=== PATIENT | male | born 1995 | race Caucasian/White ===

== ENCOUNTER 2017-08-20 16:07 | Emergency (ER) | payer BC, MEDICAID ==
[2017-08-20] MEDS ORDERED: Sodium Chloride 0.9% 10 ML Syringe FLUSH PRN (16:28)
[2017-08-20] MEDS ORDERED: Sodium Chloride 0.9% 1,000 ML IV ONE (16:28)
--- NOTE | 2017-08-20 16:44 | EDM.PDOC ---
ED HPI GENERAL MEDICAL PROBLEM - General Chief Complaint: General Stated Complaint: [facility] Time Seen by Provider: 08/20/17 16:31 Source of Information: Reports: Patient History Limitations: Reports: No Limitations - History of Present Illness INITIAL COMMENTS - FREE TEXT/NARRATIVE: 22-year-old male arrives via [facility] for evaluation and treatment of temporary paralysis. Patient reports he was driving. He states that he developed a headache. States it involved his entire head. He then had numbness, tingling and paralysis of his extremities. He states this entire episode lasted about 5 minutes. He is able to stick puller the car and used his voice recognition to call 911 for help. Since arriving in the ER he no longer has a headache. Reports good sensation in his extremities. No current paralysis. States he has been ill with cold symptoms and a sore throat for the last week. He reports he has been feeling nauseous and can't keep anything down. States last week he has had sore throat, fevers, nausea, vomiting and diarrhea. Reports he drinks alcohol socially. Denies any drug use. - Related Data Allergies Allergy/AdvReac Type Severity Reaction Status Date / Time No Known Allergies Allergy Verified 08/20/17 16:16 Home Meds: Home Meds Magnesium Chloride [Slow-Mag] 71.5 mg PO DAILY #5 tablet.dr 08/20/17 [Rx] Potassium Chloride 20 meq PO DAILY #5 tablet.er 08/20/17 [Rx] Past Medical History - Past Health History Medical/Surgical History: Denies Medical/Surgical History Social & Family History - Tobacco Use Years of Tobacco use: 3 - Alcohol Use Days Per Week of Alcohol Use: 0 - Recreational Drug Use Recreational Drug Use: No ED ROS GENERAL - Review of Systems Review Of Systems: See Below Constitutional: Reports: Fever HEENT: Reports: Throat Pain GI/Abdominal: Reports: Diarrhea, Nausea, Vomiting Neurological: Reports: Headache (ealier now resolved), Numbness (ealier now resolved), Tingling (earlier now resolved), Other (temporary pralysis extremities). Denies: Syncope ED EXAM, GENERAL - Physical Exam Exam: See Below Exam Limited By: No Limitations General Appearance: Alert, WD/WN, No Apparent Distress Eye Exam: Bilateral Eye: EOMI, Normal Inspection, PERRL Ears: Normal External Exam, Normal Canal, Hearing Grossly Normal, Normal TMs Nose: Normal Inspection Throat/Mouth: Normal Inspection, Normal Oropharynx, Normal Voice, No Airway Compromise Respiratory/Chest: No Respiratory Distress, Lungs Clear, Normal Breath Sounds Cardiovascular: Normal Peripheral Pulses, Regular Rate, Rhythm, No Murmur GI/Abdominal: Soft, Non-Tender Neurological: Alert, Oriented, CN II-XII Intact, Normal Cognition, Normal Gait, Other (job developer 5/5 bilaterally, doriflexion and plantarflexion 5/5 bilaterally, normal fniger to nose testing, normal heel to wu testing) Psychiatric: Normal Affect, Normal Mood Skin Exam: Warm, Dry, Normal Color Course - Vital Signs Last Recorded V/S: Last Vital Signs Temp 35.9 C 08/20/17 16:13 Pulse 109 H 08/20/17 16:13 Resp 16 08/20/17 16:13 BP 126/67 08/20/17 16:13 Pulse Ox 100 08/20/17 16:13 - Orders/Labs/Meds Orders: Active Orders 24 hr Category Date Time Status Peripheral IV Care [RC] . DIRECTED Care 08/20/17 16:30 Active Chest 2V [CR] Stat Exams 08/20/17 16:28 Taken Head wo Cont [CT] Stat Exams 08/20/17 16:28 Taken CULTURE STREP A CONFIRMATION [RM] Stat Lab 08/20/17 17:03 Results STREP SCRN A RAPID W CULT CONF [RM] Stat Lab 08/20/17 17:03 Results Peripheral IV Insertion Adult [OM.PC] Routine Oth 08/20/17 16:28 Ordered Labs: Laboratory Tests 08/20/17 08/20/17 08/20/17 Range/Units 16:43 16:43 16:43 WBC 9.09 H (4.23-9.07) K/mm3 RBC 5.29 (4.63-6.08) M/mm3 Hgb 17.2 (13.7-17.5) gm/L Hct 47.7 (40.1-51.0) % MCV 90.2 (79.0-92.2) fl MCH 32.5 H (25.7-32.2) pg MCHC 36.1 H (32.2-35.5) g/dl RDW Std Deviation 43.1 (35.1-43.9) fL Plt Count 211 (163-337) K/mm3 MPV 9.6 (9.4-12.3) fl Neut % (Auto) 72.3 H (34.0-67.9) % Lymph % (Auto) 20.7 L (21.8-53.1) % [place] % (Auto) 6.4 (5.3-12.2) % Eos % (Auto) 0.2 L (0.8-7.0) Baso % (Auto) 0.2 (0.1-1.2) % Neut # (Auto) 6.57 H (1.78-5.38) K/mm3 Lymph # (Auto) 1.88 (1.32-3.57) K/mm3 [place] # (Auto) 0.58 (0.30-0.82) K/mm3 Eos # (Auto) 0.02 L (0.04-0.54) K/mm3 Baso # (Auto) 0.02 (0.01-0.08) K/mm3 Sodium 140 (136-145) mEq/L Potassium 3.3 L (3.5-5.1) mEq/L Chloride 103 (98-107) mEq/L Carbon Dioxide 23 (21-32) mEq/L Anion Gap 17.3 H (5-15) BUN 8 (7-18) mg/dL Creatinine 1.1 (0.7-1.3) mg/dL Est Cr Clr Drug Dosing 106.92 mL/min Estimated GFR (MDRD) > 60 (>60) mL/min BUN/Creatinine Ratio 7.3 L (14-18) Glucose 106 (74-106) mg/dL Calcium 9.6 (8.5-10.1) mg/dL Magnesium 1.5 L (1.8-2.4) mg/dl Total Bilirubin 0.9 (0.2-1.0) mg/dL AST 75 H (15-37) U/L ALT 113 H (16-63) U/L Alkaline Phosphatase 155 H (46-116) U/L Total Protein 7.3 (6.4-8.2) g/dl Albumin 4.0 (3.4-5.0) g/dl Globulin 3.3 gm/dL Albumin/Globulin Ratio 1.2 (1-2) TSH 3rd Generation 2.341 (0.358-3.74) uIU/mL Urine Color (Yellow) Urine Appearance (Clear) Urine pH (5.0-8.0) Ur Specific [place] (1.005-1.030) Urine Protein (Negative) Urine Glucose (UA) (Negative) Urine Ketones (Negative) Urine Occult Blood (Negative) Urine Nitrite (Negative) Urine Bilirubin (Negative) Urine Urobilinogen (0.2-1.0) Ur Leukocyte Esterase (Negative) Urine RBC (0-5) /hpf Urine WBC (0-5) /hpf Ur Epithelial Cells (0-5) /hpf Urine Bacteria (FEW) /hpf Urine Mucus (FEW) /hpf Urine Opiates Screen (NEGATIVE) Ur Buprenorphine Scrn (NEGATIVE) Ur Oxycodone Screen (NEGATIVE) Urine Methadone Screen (NEGATIVE) Ur Propoxyphene Screen (NEGATIVE) Ur Barbiturates Screen (NEGATIVE) Ur Tricyclics Screen (NEGATIVE) Ur Phencyclidine Scrn (NEGATIVE) Ur Amphetamine Screen (NEGATIVE) U Methamphetamines Scrn (NEGATIVE) U Benzodiazepines Scrn (NEGATIVE) U Cocaine Metab Screen (NEGATIVE) U Marijuana (THC) Screen (NEGATIVE) Ethyl Alcohol 0.00 (0.00) gm% 08/20/17 08/20/17 Range/Units 18:50 18:50 WBC (4.23-9.07) K/mm3 RBC (4.63-6.08) M/mm3 Hgb (13.7-17.5) gm/L Hct (40.1-51.0) % MCV (79.0-92.2) fl MCH (25.7-32.2) pg MCHC (32.2-35.5) g/dl RDW Std Deviation (35.1-43.9) fL Plt Count (163-337) K/mm3 MPV (9.4-12.3) fl Neut % (Auto) (34.0-67.9) % Lymph % (Auto) (21.8-53.1) % [place] % (Auto) (5.3-12.2) % Eos % (Auto) (0.8-7.0) Baso % (Auto) (0.1-1.2) % Neut # (Auto) (1.78-5.38) K/mm3 Lymph # (Auto) (1.32-3.57) K/mm3 [place] # (Auto) (0.30-0.82) K/mm3 Eos # (Auto) (0.04-0.54) K/mm3 Baso # (Auto) (0.01-0.08) K/mm3 Sodium (136-145) mEq/L Potassium (3.5-5.1) mEq/L Chloride (98-107) mEq/L Carbon Dioxide (21-32) mEq/L Anion Gap (5-15) BUN (7-18) mg/dL Creatinine (0.7-1.3) mg/dL Est Cr Clr Drug Dosing mL/min Estimated GFR (MDRD) (>60) mL/min BUN/Creatinine Ratio (14-18) Glucose (74-106) mg/dL Calcium (8.5-10.1) mg/dL Magnesium (1.8-2.4) mg/dl Total Bilirubin (0.2-1.0) mg/dL AST (15-37) U/L ALT (16-63) U/L Alkaline Phosphatase (46-116) U/L Total Protein (6.4-8.2) g/dl Albumin (3.4-5.0) g/dl Globulin gm/dL Albumin/Globulin Ratio (1-2) TSH 3rd Generation (0.358-3.74) uIU/mL Urine Color Yellow (Yellow) Urine Appearance Clear (Clear) Urine pH 8.0 (5.0-8.0) Ur Specific [place] 1.020 (1.005-1.030) Urine Protein Negative (Negative) Urine Glucose (UA) Negative (Negative) Urine Ketones 1+ H (Negative) Urine Occult Blood Negative (Negative) Urine Nitrite Negative (Negative) Urine Bilirubin Negative (Negative) Urine Urobilinogen 1.0 (0.2-1.0) Ur Leukocyte Esterase Negative (Negative) Urine RBC 0-5 (0-5) /hpf Urine WBC 0-5 (0-5) /hpf Ur Epithelial Cells 0-5 (0-5) /hpf Urine Bacteria Few (FEW) /hpf Urine Mucus Moderate H (FEW) /hpf Urine Opiates Screen Negative (NEGATIVE) Ur Buprenorphine Scrn Negative (NEGATIVE) Ur Oxycodone Screen Negative (NEGATIVE) Urine Methadone Screen Negative (NEGATIVE) Ur Propoxyphene Screen Negative (NEGATIVE) Ur Barbiturates Screen Negative (NEGATIVE) Ur Tricyclics Screen Negative (NEGATIVE) Ur Phencyclidine Scrn Negative (NEGATIVE) Ur Amphetamine Screen Negative (NEGATIVE) U Methamphetamines Scrn Negative (NEGATIVE) U Benzodiazepines Scrn Negative (NEGATIVE) U Cocaine Metab Screen Negative (NEGATIVE) U Marijuana (THC) Screen Negative (NEGATIVE) Ethyl Alcohol (0.00) gm% Meds: Medications Discontinued Medications Generic Name Dose Route Start Last Admin Trade Name Freq PRN Reason Stop Dose Admin Sodium Chloride 1,000 mls @ 999 mls/hr 08/20/17 16:28 08/20/17 16:44 Normal Saline IV 08/20/17 17:28 999 mls/hr ONETIME ONE Administration Potassium Chloride 20 meq 08/20/17 17:43 08/20/17 17:59 Klor-Con M20 PO 08/20/17 17:44 20 meq ONETIME ONE Administration Sodium Chloride 10 ml 08/20/17 16:28 08/20/17 16:45 Saline Flush FLUSH 10 ml ASDIRECTED PRN Administration Keep Vein Open - Radiology Interpretation Free Text/Narrative:: CT of the head without contrast impression per [facility]rad: No acute intracranial process. chest xray shows no acute intrathorcic process - Re-Assessments/Exams Free Text/Narrative Re-Assessment/Exam: 08/20/17 20:00 Influenza returned negative. Strep returned negative. I reviewed the lab results with the patient. Etiology for symptoms include possible atypical migraine or dehydration with hypokalemia and hypomagnesemia. I will put him on some magnesium and potassium for the next 2 days and have him follow-up with family medicine. He has been symptom free since coming to the ER and is anxious to go home at this time. Feels improved after receiving some fluids. Will discharge home at this time. Departure - Departure Time of Disposition: 20:07 Disposition: Home, Self-Care 01 Condition: Fair Clinical Impression: Hypokalemia, Hypomagnesemia - Discharge Information Prescriptions: Magnesium Chloride [Slow-Mag] 71.5 mg PO DAILY #5 tablet. Potassium Chloride 20 meq PO DAILY #5 tablet.er Instructions: Hypomagnesemia, Hypokalemia Referrals: Gabriela Dowd OWNER [Ordering Only Provider] - Forms: ED Department Discharge Additional Instructions: Follow-up with your primary care provider next week. Recommend Iva Dowd at [facility]. Please call [phone] schedule her. Take the magnesium 1 tab daily. take the potassium 1 tab daily. Make sure drinking plenty of fluids. Please return to the ER if your symptoms change or worsen. - My Orders Last 24 Hours: My Active Orders 08/20/17 16:28 Chest 2V [CR] Stat Head wo Cont [CT] Stat Peripheral IV Insertion Adult [OM.PC] Routine 08/20/17 16:30 Peripheral IV Care [RC] . DIRECTED 08/20/17 17:03 CULTURE STREP A CONFIRMATION [RM] Stat STREP SCRN A RAPID W CULT CONF [RM] Stat - Assessment/Plan Last 24 Hours: My Active Orders 08/20/17 16:28 Chest 2V [CR] Stat Head wo Cont [CT] Stat Peripheral IV Insertion Adult [OM.PC] Routine 08/20/17 16:30 Peripheral IV Care [RC] . DIRECTED 08/20/17 17:03 CULTURE STREP A CONFIRMATION [RM] Stat STREP SCRN A RAPID W CULT CONF [RM] Stat
[2017-08-20] MEDS ORDERED: Potassium Chloride 20 MEQ Tab.ER PO ONE (17:43)
--- NOTE | 2017-08-21 12:25 | CR ---
Chest: Two views of the chest were obtained. Comparison: Prior chest x-ray of 08/14/11. Heart size and mediastinum are within normal limits. Lungs are clear. Bony structures appear within normal limits for the patient's age. Impression: 1. Nothing acute is identified on two-view chest x-ray. Diagnostic code #1 MTDD
--- NOTE | 2017-08-21 12:26 | CT ---
Head CT Technique: Multiple axial sections through the brain were obtained. Intravenous contrast was not utilized. Comparison: No prior head CT study, previous MRI brain dated 08/11/09 is available. Findings: Ventricles along with basal cisterns and sulci over the convexities are within normal limits for the patient's age. No abnormal parenchymal densities are seen. No evidence of intracranial hemorrhage. No midline shift or mass effect is seen. Bone window settings were reviewed which show no acute calvarial abnormality. Visualized sinuses are clear. Impression: 1. Nothing acute is seen on noncontrast head CT study. Findings appear fairly stable from prior MRI. Diagnostic code #1 Agree with preliminary report issued by [employer] [facility] ([facility] preliminary report dictated on 08/20/17, 6:34 PM Central Time) [facility]
== END 2017-08-20 20:23 | disposition home or self-care (01) ==
LOC: JD.ED 16:07
DX: E87.6 Hypokalemia (principal); E83.42 Hypomagnesemia; Z79.899 Other long term (current) drug therapy
CPT/HCPCS: 36415; 70450; 71020; 80053; 80306; 81001; 82962; 83735; 84443; 85025; 87081; 87430; 87804; 96360; 99285; A9270; G0480; J7040; J7050; 99283

== ENCOUNTER 2017-08-25 17:35 | Emergency (ER) | payer MEDICAID, OTHER ==
[2017-08-25] MEDS ORDERED: Sodium Chloride 0.9% 10 ML Syringe FLUSH PRN (17:55)
[2017-08-25] MEDS ORDERED: Ondansetron 4 MG/2 ML SDV IVPUSH ONE (18:06)
[2017-08-25] MEDS ORDERED: LORazepam 2 MG/ML MDV IVPUSH ONE (18:06)
[2017-08-25] MEDS ORDERED: Acetaminophen 325 MG Tab PO ONE (18:06)
--- NOTE | 2017-08-25 19:06 | EDM.PDOC ---
ED HPI GENERAL MEDICAL PROBLEM - General Chief Complaint: Neurological Problem Stated Complaint: POSS SEIZURE Time Seen by Provider: 08/25/17 17:55 Source of Information: Reports: Patient, RN Notes Reviewed - History of Present Illness INITIAL COMMENTS - FREE TEXT/NARRATIVE: 22-year-old male presents to ED hyperventilating with numbness and tingling of hands and feet and also spasm of his hands. He was driving and then had onset of headache and some shooting neck discomfort. That's when his symptoms all started about 90 minutes ago. Now the headache is almost gone. The neck pain is gone. The numbness of his hands is somewhat better but still present. He did have some similar symptoms about 5 days ago, evaluated here in the ED found to have low potassium and magnesium. He was given prescription for supplementation but has not filled those. He is not diabetic and does not have other known medical problems. No alcohol today. Headache Pain Score (Numeric/FACES): 7 - Related Data Allergies Allergy/AdvReac Type Severity Reaction Status Date / Time No Known Allergies Allergy Verified 08/25/17 17:43 Home Meds: Home Meds Magnesium Chloride [Slow-Mag] 71.5 mg PO DAILY #5 tablet. 08/20/17 [Rx] Potassium Chloride 20 meq PO DAILY #5 tablet.er 08/20/17 [Rx] Past Medical History - Past Health History Medical/Surgical History: Denies Medical/Surgical History Hematologic History: Reports: Other (See Below) Other Hematologic History: low WBC count Social & Family History - Tobacco Use Smoking Status *Q: Current Every Day Smoker Years of Tobacco use: 6 Packs/Tins Daily: 1 - Caffeine Use Caffeine Use: Reports: Soda - Alcohol Use Days Per Week of Alcohol Use: 0 - Recreational Drug Use Recreational Drug Use: No ED ROS GENERAL - Review of Systems Review Of Systems: See Below Constitutional: Denies: Fever, Chills, Diaphoresis HEENT: Denies: Ear Pain, Sinus Problem, Throat Pain, Vertigo Respiratory: Reports: Shortness of Breath. Denies: Cough Cardiovascular: Reports: Lightheadedness. Denies: Chest Pain GI/Abdominal: Reports: Nausea. Denies: Abdominal Pain, Vomiting Musculoskeletal: Reports: Neck Pain (Gone). Denies: Shoulder Pain, Arm Pain, Back Pain Skin: Denies: Rash Neurological: Reports: Dizziness, Numbness, Tingling, Trouble Speaking (Briefly , gone). Denies: Difficulty Walking Psychiatric: Reports: Anxiety (Patient did get very anxious with the above symptoms) ED EXAM, NEURO - Physical Exam Exam: See Below General Appearance: Alert, Anxious, Moderate Distress Eye Exam: Bilateral Eye: PERRL Throat/Mouth: Normal Inspection, Normal Oropharynx Head Exam: Atraumatic. No: Facial Swelling Neck: Supple, Full Range of Motion Respiratory/Chest: Lungs Clear, Normal Breath Sounds, Respiratory Distress ( Mild tachypnea) Cardiovascular: Tachycardia GI/Abdominal: Soft, Non-Tender Neurological: Alert, No Motor/Sensory Deficits, Oriented x 3 Skin Exam: Warm, Dry, Normal Color Course - Vital Signs Last Recorded V/S: Last Vital Signs Temp 97.5 F 08/25/17 17:43 Pulse 110 H 08/25/17 17:43 Resp 24 H 08/25/17 17:43 BP 159/98 H 08/25/17 17:43 Pulse Ox 100 08/25/17 17:43 - Orders/Labs/Meds Meds: Medications Discontinued Medications Generic Name Dose Route Start Last Admin Trade Name Anita PRN Reason Stop Dose Admin Acetaminophen 975 mg 08/25/17 18:06 08/25/17 18:15 Tylenol PO 08/25/17 18:07 975 mg NOW ONE Administration Lorazepam 1 mg 08/25/17 18:06 08/25/17 18:12 Ativan IVPUSH 08/25/17 18:07 1 mg ONETIME ONE Administration Ondansetron HCl 4 mg 08/25/17 18:06 08/25/17 18:14 Zofran IVPUSH 08/25/17 18:07 4 mg ONETIME ONE Administration Sodium Chloride 10 ml 08/25/17 17:55 08/25/17 18:15 Saline Flush FLUSH 10 ml ASDIRECTED PRN Administration Keep Vein Open - Re-Assessments/Exams Free Text/Narrative Re-Assessment/Exam: 08/25/17 19:13 Due to quite severe anxiety on arrival, continued hyperventilation, paresthesias of bilateral hands and feet we did give Ativan 1 mg IV. Not repeat labs as all of his lab work was relatively normal 5 days ago other than a potassium of 3.3 and also a low magnesium. He now is very drowsy, resting very comfortably. Paresthesias and spasm of the hands have all completely resolved. He feels tremendously better. At this time he has no headache neck or back discomfort. Plan to discharge him shortly. Departure - Departure Time of Disposition: 19:15 Disposition: Home, Self-Care 01 Condition: Fair Clinical Impression: Acute hyperventilation syndrome, Hypomagnesemia, Hypokalemia - Discharge Information Instructions: Hyperventilation, Hypomagnesemia, Hypokalemia Referrals: PCP,None [Primary Care Provider] - Forms: ED Department Discharge Additional Instructions: You have been given sedative medication while here in the ED, do not drive until morning. Drink plenty of water to maintain hydration. If you do start having similar symptoms develop in the future be sure to try slow your breathing down. when you do start breathing hard and fast that does change the chemistry of your blood and will lead to the progressive numbness tingling and spasm of your hands and feet. You can read up on hyperventilation syndrome and learn more about that. Fill prescriptions provided 5 days ago for low potassium and magnesium. Be sure to eat plenty of fruits and vegetables. Try eat a good healthy balanced diet. Bananas and potatoes are good source of potassium.
== END 2017-08-25 19:33 | disposition home or self-care (01) ==
LOC: JD.ED 17:35
DX: F45.8 Other somatoform disorders (principal); E87.6 Hypokalemia; E83.42 Hypomagnesemia; F17.210 Nicotine dependence, cigarettes, uncomplicated; Z79.899 Other long term (current) drug therapy
CPT/HCPCS: 99284; A9270; J2060; J2405; J7050; 96374; 96375

== ENCOUNTER 2021-01-16 11:56 | Emergency (ER) | payer MEDICAID, OTHER ==
[2021-01-16] MEDS ORDERED: HYDROmorphone 0.5 MG/0.5 ML Syringe IVPUSH ONE (12:27)
[2021-01-16] MEDS ORDERED: Sodium Chloride 0.9% 1,000 ML IV STA (12:27)
[2021-01-16] MEDS ORDERED: LORazepam 2 MG/ML SDV IVPUSH ONE (12:28)
--- NOTE | 2021-01-16 12:52 | EDM.PDOCBH ---
ED HPI GENERAL MEDICAL PROBLEM - General Chief Complaint: Drug or Alcohol Abuse Stated Complaint: DETOXING NO FEELING IN LEGS Time Seen by Provider: 01/16/21 12:04 Source of Information: Reports: Patient, RN Notes Reviewed History Limitations: Reports: No Limitations - History of Present Illness INITIAL COMMENTS - FREE TEXT/NARRATIVE: Patient is a 25-year-old male presenting to the emergency department with complaints of alcohol withdrawal and the request to obtain treatment for his alcoholism. He reports that he has been drinking heavily for the last 4 years. He drinks approximately 1/5 of vodka per day. Last drink was around 2300 last evening. He reports that he is normally able to stay sober throughout the day in order for him to work, however once he gets home in the evening he does drink. Usually around lunchtime he develops tremors and "feeling horrible ". At this time, he complains of having some low back pain as well as paresthesia in his lower extremities. He has had symptoms similar to this with alcohol withdrawal in the past. He is able to walk without difficulty. Had some nausea and vomiting this morning but that has since resolved. He reports feeling anxious. 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 He denies any recreational drug use at this time. He has had alcohol evaluations done with [facility] in the past, however it is been quite sometime since this has been done. Patient does have an underlying seizure disorder for which he takes Depakote. He reports that in 2019, he stopped taking his seizure medications and also stop drinking. He did have seizures at that time. Since that time, he has stopped drinking on a few occasions and denies any seizure activity. He has been taking his Depakote faithfully. He denies any headache or hallucinations, however he states he has a bit of pressure in his head. He would like to go through alcohol treatment as he reports he has kids and this has to stop. Lower Back Pain Score (Numeric/FACES): 8 - Related Data Allergies Allergy/AdvReac Type Severity Reaction Status Date / Time No Known Allergies Allergy Verified 01/16/21 12:06 Home Meds: Home Meds Magnesium Chloride [Slow-Mag] 71.5 mg PO DAILY #5 tablet.dr 08/20/17 [Rx] Potassium Chloride 20 meq PO DAILY #5 tablet.er 08/20/17 [Rx] Divalproex Sodium [Depakote] 500 mg PO BIDMEALS 01/16/21 [History] LORazepam [Ativan] 1 mg PO ASDIRECTED #18 tab 01/16/21 [Rx] Ondansetron [Zofran ODT] 4 mg PO Q8H #9 tab.dis 01/16/21 [Rx] Past Medical History - Past Health History Medical/Surgical History: Denies Medical/Surgical History Cardiovascular History: Reports: Hypertension Respiratory History: Reports: SOB Gastrointestinal History: Reports: None Genitourinary History: Reports: None Musculoskeletal History: Reports: Back Pain, Chronic Neurological History: Reports: Concussion, Migraines, Seizure Psychiatric History: Reports: Addiction, Anxiety, Depression Endocrine/Metabolic History: Reports: None Hematologic History: Reports: Other (See Below) Other Hematologic History: low WBC count Immunologic History: Reports: None Oncologic (Cancer) History: Reports: None Dermatologic History: Reports: None - Infectious Disease History Infectious Disease History: Reports: Chicken Pox - Past Surgical History Head Surgeries/Procedures: Reports: None HEENT Surgical History: Reports: Oral Surgery GI Surgical History: Reports: None Male Surgical History: Reports: Circumcision Social & Family History - Family History Family Medical History: No Pertinent Family History Endocrine/Metabolic: Reports: Diabetes, type II Oncologic: Reports: Prostate - Tobacco Use Tobacco Use Status *Q: Current Every Day Tobacco User Years of Tobacco use: 11 Packs/Tins Daily: 1 - Caffeine Use Caffeine Use: Reports: Energy Drinks - Recreational Drug Use Recreational Drug Use: Yes Drug Use in Last 12 Months: No Recreational Drug Type: Reports: Methamphetamine Recreational Drug Use Frequency: Not Used In Over 1 Month ED ROS GENERAL - Review of Systems Review Of Systems: See Below Constitutional: Reports: No Symptoms HEENT: Reports: No Symptoms Respiratory: Reports: No Symptoms Cardiovascular: Reports: No Symptoms Endocrine: Reports: No Symptoms GI/Abdominal: Reports: No Symptoms : Reports: No Symptoms Musculoskeletal: Reports: Back Pain Skin: Reports: No Symptoms Neurological: Reports: Paresthesia (bilateral lower extremities) Psychiatric: Reports: Anxiety Hematologic/Lymphatic: Reports: No Symptoms Immunologic: Reports: No Symptoms ED EXAM, BEHAVIORAL HEALTH - Physical Exam Exam: See Below Exam Limited By: No Limitations General Appearance: Alert, WD/WN, No Apparent Distress Respiratory/Chest: No Respiratory Distress, Lungs Clear, Normal Breath Sounds, No Accessory Muscle Use, Chest Non-Tender Cardiovascular: Normal Peripheral Pulses, Regular Rate, Rhythm, No Edema, No Gallop, No JVD, No Murmur, No Rub GI/Abdominal: Normal Bowel Sounds, Soft, Non-Tender, No Organomegaly, No Distention, No Abnormal Bruit, No Mass Back Exam: Normal Inspection, Full Range of Motion, NT Neurological: Alert, Normal Mood/Affect, CN II-XII Intact, Normal Cognition, Normal Gait, Normal Reflexes, No Motor/Sensory Deficits, Oriented x 3 Psychiatric: Alert, Normal Affect, Normal Cognition, Normal Mood, Oriented #1 Interpretation EKG Date: 01/16/21 Time: 17:57 Rhythm: NSR Rate (Beats/Min): 96 [place]: Normal P-Wave: Present QRS: Normal ST-T: Normal QT: Normal EKG Interpretation Comments: NSR at 96/min EKG interpreted by Dr. Yu MD. COURSE, BEHAVIORAL HEALTH COMP - Course Vital Signs: Last Vital Signs Temp 97.5 F 01/16/21 12:10 Pulse 109 H 01/16/21 12:10 Resp 18 01/16/21 12:10 BP 141/93 H 01/16/21 12:10 Pulse Ox 98 01/16/21 12:10 Orders, Labs, Meds: Laboratory Tests 01/16/21 01/16/21 01/16/21 Range/Units 12:10 12:10 12:10 WBC 12.27 H (4.23-9.07) K/mm3 RBC 5.63 (4.63-6.08) M/mm3 Hgb 18.1 H (13.7-17.5) gm/dl Hct 51.3 H (40.1-51.0) % MCV 91.1 (79.0-92.2) fl MCH 32.1 (25.7-32.2) pg MCHC 35.3 (32.2-35.5) g/dl RDW Std Deviation 44.5 H (35.1-43.9) fL Plt Count 252 (163-337) K/mm3 MPV 9.5 (9.4-12.3) fl Neutrophils % (Manual) 64 H (40-60) % Band Neutrophils % 0 (0-10) % Lymphocytes % (Manual) 36 (20-40) % Atypical Lymphs % 0 % Monocytes % (Manual) 0 L (2-10) % Eosinophils % (Manual) 0 L (0.8-7.0) % Basophils % (Manual) 0 L (0.2-1.2) Platelet Estimate Adequate RBC Morph Comment Normal Sodium 140 (136-145) mEq/L Potassium 3.5 (3.5-5.1) mEq/L Chloride 100 (98-107) mEq/L Carbon Dioxide 24 (21-32) mEq/L Anion Gap 19.5 H (5-15) BUN 9 (7-18) mg/dL Creatinine 1.2 (0.7-1.3) mg/dL Est Cr Clr Drug Dosing 98.48 mL/min Estimated GFR (MDRD) > 60 (>60) mL/min BUN/Creatinine Ratio 7.5 L (14-18) Glucose 152 H (70-99) mg/dL Calcium 9.1 (8.5-10.1) mg/dL Magnesium (1.8-2.4) mg/dL Total Bilirubin 1.2 H (0.2-1.0) mg/dL AST 143 H (15-37) U/L ALT 194 H (16-63) U/L Alkaline Phosphatase 133 H (46-116) U/L Total Protein 8.0 (6.4-8.2) g/dl Albumin 4.4 (3.4-5.0) g/dl Globulin 3.6 gm/dL Albumin/Globulin Ratio 1.2 (1-2) TSH 3rd Generation 2.315 (0.358-3.74) uIU/mL Salicylates 1.1 L (2.8-20) mg/dL Urine Opiates Screen (QDTJJB=901) Ur Buprenorphine Scrn (CUTOFF=10) Ur Oxycodone Screen (HLA3QM=939) Urine Methadone Screen (YCQ2PL=086) Ur Propoxyphene Screen (CLQKBK=662) Acetaminophen < 0 L (10-30) ug/mL Ur Barbiturates Screen (RDBBYQ=515) Ur Tricyclics Screen (WFASLR=437) Ur Phencyclidine Scrn (CUTOFF=25) Ur Amphetamine Screen (WNSMDE=643) U Methamphetamines Scrn (JIPXZB=608) U Benzodiazepines Scrn (DJWHSF=260) U Cocaine Metab Screen (ZPDJTF=480) U Marijuana (THC) Screen (CUTOFF=50) Ethyl Alcohol 0.19 (0.00) gm% 01/16/21 01/16/21 Range/Units 12:10 13:50 WBC (4.23-9.07) K/mm3 RBC (4.63-6.08) M/mm3 Hgb (13.7-17.5) gm/dl Hct (40.1-51.0) % MCV (79.0-92.2) fl MCH (25.7-32.2) pg MCHC (32.2-35.5) g/dl RDW Std Deviation (35.1-43.9) fL Plt Count (163-337) K/mm3 MPV (9.4-12.3) fl Neutrophils % (Manual) (40-60) % Band Neutrophils % (0-10) % Lymphocytes % (Manual) (20-40) % Atypical Lymphs % % Monocytes % (Manual) (2-10) % Eosinophils % (Manual) (0.8-7.0) % Basophils % (Manual) (0.2-1.2) Platelet Estimate RBC Morph Comment Sodium (136-145) mEq/L Potassium (3.5-5.1) mEq/L Chloride (98-107) mEq/L Carbon Dioxide (21-32) mEq/L Anion Gap (5-15) BUN (7-18) mg/dL Creatinine (0.7-1.3) mg/dL Est Cr Clr Drug Dosing mL/min Estimated GFR (MDRD) (>60) mL/min BUN/Creatinine Ratio (14-18) Glucose (70-99) mg/dL Calcium (8.5-10.1) mg/dL Magnesium 2.1 (1.8-2.4) mg/dL Total Bilirubin (0.2-1.0) mg/dL AST (15-37) U/L ALT (16-63) U/L Alkaline Phosphatase (46-116) U/L Total Protein (6.4-8.2) g/dl Albumin (3.4-5.0) g/dl Globulin gm/dL Albumin/Globulin Ratio (1-2) TSH 3rd Generation (0.358-3.74) uIU/mL Salicylates (2.8-20) mg/dL Urine Opiates Screen Presumptive positive H (NTYVIQ=786) Ur Buprenorphine Scrn Negative (CUTOFF=10) Ur Oxycodone Screen Negative (FPC9EK=942) Urine Methadone Screen Negative (SGD6BF=767) Ur Propoxyphene Screen Negative (BWKZEJ=751) Acetaminophen (10-30) ug/mL Ur Barbiturates Screen Negative (GIRSIQ=936) Ur Tricyclics Screen Negative (JGFVRB=522) Ur Phencyclidine Scrn Negative (CUTOFF=25) Ur Amphetamine Screen Negative (TRDSDE=048) U Methamphetamines Scrn Negative (LHNYQC=954) U Benzodiazepines Scrn Presumptive positive H (YWMVYY=240) U Cocaine Metab Screen Negative (INOGNQ=714) U Marijuana (THC) Screen Negative (CUTOFF=50) Ethyl Alcohol (0.00) gm% Medications Discontinued Medications Generic Name Dose Route Start Last Admin Trade Name Freq PRN Reason Stop Dose Admin Hydromorphone HCl 0.5 mg 01/16/21 12:27 Hydromorphone 0.5 Mg/0.5 Ml Syringe IVPUSH 01/16/21 12:28 ONETIME ONE Sodium Chloride 1,000 mls @ 999 mls/hr 01/16/21 12:27 01/16/21 12:45 Normal Saline IV 01/16/21 13:27 999 mls/hr NOW STA Administration Lorazepam 0.5 mg 01/16/21 12:28 01/16/21 12:45 Lorazepam 2 Mg/Ml Sdv IVPUSH 01/16/21 12:29 0.5 mg ONETIME ONE Administration Discharge vs Psych Eval/Treatment:: Patient is a 25-year-old male presenting to the emergency department for alcohol detox and request to go to treatment for alcoholism. He reports drinking 1/5 of vodka with his last drink being around 2300 last evening. Denies any drug use. On exam, he does have a minimal tremor with hands extended. He had some nausea and vomiting this morning but has had none since. He is alert and oriented. Denies any abdominal pain. Does report some low back pain with lower extremity paresthesia, however he is able to ambulate without difficulty. He reports that he has had this in the past when he stops drinking as well. He does report is a history of seizures, however he has a known seizure disorder and at the time that these occurred he had stopped taking his Depakote. He reports that he has been taking his Depakote faithfully. I have ordered blood work, EKG, urine drug screen, and a 1 L bolus of normal saline in addition to Ativan 0.5 mg IV. 01/16/21 14:40 Hematology was significant for WBC minimally elevated at 12.27, hemoglobin elevated 18.1, anion gap 19.5, glucose 152, total bili 1.2, AST 143, ALT 194, alkaline phosphatase 133. Urine drug screen is positive for opiates and benzodiazepines. EtOH elevated 0.19. I have ordered a second liter of IV fluid bolus. [facility] will be sending someone up to evaluate him for the residential crisis center. 01/16/21 16:23 Patient has been accepted for admission to the [facility] crisis [place] for alcohol treatment. I will send prescription for Ativan and Zofran as well as orders to continue his Depakote as previously prescribed. Discharge instructions as documented. Departure - Departure Time of Disposition: 16:23 Disposition: DC/Tfer to Other 70 Condition: Good Clinical Impression: Alcohol abuse Alcohol withdrawal syndrome Qualifiers: Complication of substance-induced condition: uncomplicated Qualified Code(s): F10.230 - Alcohol dependence with withdrawal, uncomplicated - Discharge Information *PRESCRIPTION DRUG MONITORING PROGRAM REVIEWED*: Yes *COPY OF PRESCRIPTION DRUG MONITORING REPORT IN PATIENT MAMIE: No Prescriptions: LORazepam [Ativan] 1 mg PO ASDIRECTED #18 tab Ondansetron [Zofran ODT] 4 mg PO Q8H #9 tab.dis Instructions: Alcohol Use Disorder Referrals: PCP,None [Primary Care Provider] - Forms: ED Department Discharge Additional Instructions: You were seen in the emergency department today for evaluation with regards to alcohol detox and request to go to treatment for your alcoholism. Work-up included blood work, drug screen, and EKG. Results your work-up indicate that your blood alcohol was elevated at 0.19. Your drug screen was positive for benzodiazepines which would be due to the Ativan you received in ER as well as opiates. Arrangements have been made for you to be admitted to the [facility] residential crisis [place] for alcohol treatment. I have sent prescriptions for Ativan to help with your withdrawal symptoms as well as Zofran to help with any nausea or vomiting. You should continue your Depakote as previously prescribed. Return to ER as needed. Sepsis Event Note (ED) - Evaluation Sepsis Screening Result: No Definite Risk - Focused Exam Vital Signs: Vital Signs Temp Pulse Resp BP Pulse Ox 01/16/21 12:10 97.5 F 109 H 18 141/93 H 98
[2021-01-16 13:07] LABS: ACETAMINOPHEN < 0 ug/mL (10-30)
== END 2021-01-16 16:34 | disposition other institution (70) ==
LOC: JD.ED 11:56
DX: F10.230 Alcohol dependence with withdrawal, uncomplicated (principal); I10 Essential (primary) hypertension; R56.9 Unspecified convulsions; Z79.899 Other long term (current) drug therapy; Z72.0 Tobacco use; Y90.6 Blood alcohol level of 120-199 mg/100 ml
CPT/HCPCS: 36415; 80053; 80143; 80179; 80306; 80307; 83735; 84443; 85007; 85027; 93005; 96374; 99285; J2060; J7030; 93010; 99284

== ENCOUNTER 2021-08-04 03:18 | Emergency (ER) | payer SELFPAY ==
[2021-08-04] MEDS ORDERED: Pantoprazole 40 MG Vial IVPUSH ONE (03:51)
[2021-08-04] MEDS ORDERED: Ondansetron 4 MG/2 ML SDV IVPUSH ONE (03:51)
--- NOTE | 2021-08-04 03:55 | EDM.PDOC ---
<Jemal Welsh - Last Filed: 08/04/21 06:37> ED HPI GENERAL MEDICAL PROBLEM - General Chief Complaint: Drug or Alcohol Abuse Stated Complaint: VOMITING BLOOD/INTOXICATED Time Seen by Provider: 08/04/21 03:52 Source of Information: Reports: Patient History Limitations: Reports: Intoxication - History of Present Illness INITIAL COMMENTS - FREE TEXT/NARRATIVE: Patient is a 18-year-old male with a past medical history of alcohol abuse presenting with a chief complaint of vomiting blood. Patient states he had a large amount of blood in his vomit earlier this evening. Patient states that the blood was bright red and he was scared because this is something new for him. He reports pain primarily in the bilateral flank area. Has not noticed any change in his stools. Denies any dizziness or loss of consciousness. Patient drinks approximately 750 mL of hard alcohol per day. The patient last had a drink about an hour prior to arrival. Patient denies prior history of having an endoscopy. - Related Data Allergies Allergy/AdvReac Type Severity Reaction Status Date / Time No Known Allergies Allergy Verified 08/04/21 03:34 Home Meds: Home Meds Divalproex Sodium [Depakote] 500 mg PO BID 08/04/21 [History] LORazepam [Ativan] 1 mg PO ASDIRECTED #20 tablet 08/04/21 [Rx] Ondansetron [Ondansetron ODT] 4 mg PO Q6H PRN #15 tab.rapdis 08/04/21 [Rx] Pantoprazole [ProTONIX] 40 mg PO DAILY #30 tab.cr 08/04/21 [Rx] Past Medical History - Past Health History Medical/Surgical History: Denies Medical/Surgical History Cardiovascular History: Reports: Hypertension Respiratory History: Reports: SOB Gastrointestinal History: Reports: None Genitourinary History: Reports: None Musculoskeletal History: Reports: Back Pain, Chronic Neurological History: Reports: Concussion, Migraines, Seizure Psychiatric History: Reports: Addiction, Anxiety, Depression Endocrine/Metabolic History: Reports: None Hematologic History: Reports: Other (See Below) Other Hematologic History: low WBC count Immunologic History: Reports: None Oncologic (Cancer) History: Reports: None Dermatologic History: Reports: None - Infectious Disease History Infectious Disease History: Reports: Chicken Pox - Past Surgical History Head Surgeries/Procedures: Reports: None HEENT Surgical History: Reports: Oral Surgery GI Surgical History: Reports: None Male Surgical History: Reports: Circumcision Social & Family History - Family History Family Medical History: No Pertinent Family History Endocrine/Metabolic: Reports: Diabetes, type II Oncologic: Reports: Prostate - Tobacco Use Tobacco Use Status *Q: Current Every Day Tobacco User Years of Tobacco use: 10 Packs/Tins Daily: 0.5 - Caffeine Use Caffeine Use: Reports: Energy Drinks - Alcohol Use Days Per Week of Alcohol Use: 7 Number of Drinks Per Day: 10 Total Drinks Per Week: 70 - Recreational Drug Use Recreational Drug Use: Yes Recreational Drug Type: Reports: Cocaine Recreational Drug Use Frequency: Monthly ED ROS GENERAL - Review of Systems Review Of Systems: See Below Free Text/Narrative/Comment: In addition to that documented in the HPI above, the additional ROS was obtained: Constitutional: Denies fevers or chills Eyes: Denies vision changes ENMT: Denies sore throat CV: Denies chest pain Resp: Denies SOB GI: Per HPI : Denies painful urination MSK: Denies recent trauma Skin: Denies new rashes Neuro: Denies new numbness or tingling or weakness Endocrine: Denies unexpected weight loss Heme: Denies bleeding disorders ED EXAM, GI/ABD - Physical Exam Exam: See Below Text/Narrative:: I have reviewed the triage vital signs Const: Slurring of speech mildly. Well nourished, well developed, appears stated age Eyes: Pupils Equal and reactive to light bilaterally, no conjunctival injection HENT: No evidence of epistaxis or tongue biting. No signs of trauma or swelling, Neck supple without meningismus CV: Regular Rate Rhythm, Warm, well-perfused extremities RESP: Unlabored respiratory effort GI: soft, non-tender, non-distended, no masses MSK: No gross deformities appreciated Skin: Warm, dry. No rashes Neuro: Alert, vending machine repairer II-XII grossly intact. Sensation and motor function of extremities grossly intact. Psych: Tearful and anxious mood and affect. Departure - Departure Disposition: Home, Self-Care 01 Clinical Impression: Alcohol abuse - Discharge Information Referrals: PCP,None [Primary Care Provider] - Forms: ED Department Discharge Additional Instructions: Return to the emergency room with any questions problems or concerning symptoms. Keep in touch with [facility] and with [facility] in [place]. Follow-up in the hospital clinic on Friday for recheck their phone number is [phone] [facility]. 1. Ativan taper 1 pill 4 times daily for 2 days then 1 pill 3 times daily for 2 days then 1 pill twice daily then 1 pill nightly for [address] return to work within 12 hours of using this medication 2. Zofran. This is an antinausea medication take 1 every 6 hours as needed for nausea and vomiting 3. Protonix, this is to help your stomach heal up take 1 daily 30 to 60 minutes before your morning meal. Stay on this for 1 month sometimes therapy is required for longer. Sepsis Event Note (ED) - Evaluation Sepsis Screening Result: No Definite Risk - Assessment/Plan Assessment:: Patient is a 26-year-old male presenting to the emergency room with alcohol intoxication. He did complain of vomiting blood. However, here he appeared very well and no hypotension or further vomiting. Patient has a benign abdominal exam. No signs of liver cirrhosis at this time. Laboratory studies within normal limits. No anemia. No evidence of liver failure. At this point, patient is in Aims65 score of 0. He is requesting additional help for alcohol abuse. We did contact [facility] who will come evaluate the patient for possible placement there. I will prescribe a Librium taper for this patient if he is accepted to guidelines. Otherwise, patient is medically stable for management of alcohol abuse. <Kodak Mcdaniel - Last Filed: 08/04/21 09:18> Course - Vital Signs Last Recorded V/S: Last Vital Signs Temp 36.9 C 08/04/21 03:35 Pulse 102 H 08/04/21 03:35 Resp 18 08/04/21 03:35 BP 148/88 H 08/04/21 03:35 Pulse Ox 100 08/04/21 03:35 - Orders/Labs/Meds Labs: Laboratory Tests 08/04/21 08/04/21 08/04/21 Range/Units 04:06 04:06 04:06 WBC 8.28 (4.23-9.07) K/mm3 RBC 5.41 (4.63-6.08) M/mm3 Hgb 18.1 H (13.7-17.5) gm/dl Hct 50.5 (40.1-51.0) % MCV 93.3 H (79.0-92.2) fl MCH 33.5 H (25.7-32.2) pg MCHC 35.8 H (32.2-35.5) g/dl RDW Std Deviation 42.9 (35.1-43.9) fL Plt Count 209 (163-337) K/mm3 MPV 9.2 L (9.4-12.3) fl Neut % (Auto) 46.8 (34.0-67.9) % Lymph % (Auto) 45.4 (21.8-53.1) % [place] % (Auto) 6.4 (5.3-12.2) % Eos % (Auto) 0.7 L (0.8-7.0) Baso % (Auto) 0.5 (0.1-1.2) % Neut # (Auto) 3.87 (1.78-5.38) K/mm3 Lymph # (Auto) 3.76 H (1.32-3.57) K/mm3 [place] # (Auto) 0.53 (0.30-0.82) K/mm3 Eos # (Auto) 0.06 (0.04-0.54) K/mm3 Baso # (Auto) 0.04 (0.01-0.08) K/mm3 PT 10.4 (9.7-12.0) SECONDS INR 0.93 Sodium 142 (136-145) mEq/L Potassium 3.7 (3.5-5.1) mEq/L Chloride 101 (98-107) mEq/L Carbon Dioxide 25 (21-32) mEq/L Anion Gap 19.7 H (5-15) BUN 8 (7-18) mg/dL Creatinine 1.0 (0.7-1.3) mg/dL Est Cr Clr Drug Dosing 113.56 mL/min Estimated GFR (MDRD) > 60 (>60) mL/min BUN/Creatinine Ratio 8.0 L (14-18) Glucose 110 H (70-99) mg/dL Calcium 8.9 (8.5-10.1) mg/dL Magnesium 2.3 (1.8-2.4) mg/dL Total Bilirubin 0.9 (0.2-1.0) mg/dL AST 199 H (15-37) U/L ALT 149 H (16-63) U/L Alkaline Phosphatase 114 (46-116) U/L Total Protein 8.2 (6.4-8.2) g/dl Albumin 4.5 (3.4-5.0) g/dl Globulin 3.7 gm/dL Albumin/Globulin Ratio 1.2 (1-2) Lipase 248 (73-393) U/L Ethyl Alcohol 0.47 (0.00) gm% 08/04/21 Range/Units 08:15 WBC (4.23-9.07) K/mm3 RBC (4.63-6.08) M/mm3 Hgb (13.7-17.5) gm/dl Hct (40.1-51.0) % MCV (79.0-92.2) fl MCH (25.7-32.2) pg MCHC (32.2-35.5) g/dl RDW Std Deviation (35.1-43.9) fL Plt Count (163-337) K/mm3 MPV (9.4-12.3) fl Neut % (Auto) (34.0-67.9) % Lymph % (Auto) (21.8-53.1) % [place] % (Auto) (5.3-12.2) % Eos % (Auto) (0.8-7.0) Baso % (Auto) (0.1-1.2) % Neut # (Auto) (1.78-5.38) K/mm3 Lymph # (Auto) (1.32-3.57) K/mm3 [place] # (Auto) (0.30-0.82) K/mm3 Eos # (Auto) (0.04-0.54) K/mm3 Baso # (Auto) (0.01-0.08) K/mm3 PT (9.7-12.0) SECONDS INR Sodium (136-145) mEq/L Potassium (3.5-5.1) mEq/L Chloride (98-107) mEq/L Carbon Dioxide (21-32) mEq/L Anion Gap (5-15) BUN (7-18) mg/dL Creatinine (0.7-1.3) mg/dL Est Cr Clr Drug Dosing mL/min Estimated GFR (MDRD) (>60) mL/min BUN/Creatinine Ratio (14-18) Glucose (70-99) mg/dL Calcium (8.5-10.1) mg/dL Magnesium (1.8-2.4) mg/dL Total Bilirubin (0.2-1.0) mg/dL AST (15-37) U/L ALT (16-63) U/L Alkaline Phosphatase (46-116) U/L Total Protein (6.4-8.2) g/dl Albumin (3.4-5.0) g/dl Globulin gm/dL Albumin/Globulin Ratio (1-2) Lipase (73-393) U/L Ethyl Alcohol 0.35 (0.00) gm% Meds: Medications Discontinued Medications Generic Name Dose Route Start Last Admin Trade Name Freq PRN Reason Stop Dose Admin Morphine Sulfate 4 mg 08/04/21 04:18 08/04/21 06:00 Morphine 4 Mg/Ml Syringe IVPUSH 08/04/21 04:19 4 mg ONETIME ONE Administration Ondansetron HCl 4 mg 08/04/21 03:51 08/04/21 04:17 Ondansetron 4 Mg/2 Ml Sdv IVPUSH 08/04/21 03:52 4 mg ONETIME ONE Administration Pantoprazole Sodium 40 mg 08/04/21 03:51 08/04/21 04:17 Pantoprazole 40 Mg Vial IVPUSH 08/04/21 03:52 40 mg ONETIME ONE Administration - Re-Assessments/Exams Free Text/Narrative Re-Assessment/Exam: 08/04/21 09:05 Patient is doing well at this time however he has some real concerns about [place] he has been there 3 times in the past and does not feel anything is ever been done for him. He has phone calls out to a couple of other places including [facility] in [place] and [facility] locally. We discussed the pros and cons of trying this as an outpatient and without him having continuity of care already set up it skin to be tougher however the patient accepts this. I will put him on a short benzo taper. Anticipating he can follow-up in the hospital clinic on Friday for recheck. I will also give him a few a prescription for nausea medication and continue his PPI therapy. The patient has a history of seizure disorders that this preceded his alcoholism. He has quit drinking in the past and according to the patient this has never brought on significant withdrawal symptoms or seizures in the past. Departure - Departure Time of Disposition: 09:08 Sepsis Event Note (ED) - Focused Exam Vital Signs: Vital Signs Temp Pulse Resp BP Pulse Ox 08/04/21 03:35 36.9 C 102 H 18 148/88 H 100
[2021-08-04] MEDS ORDERED: Morphine 4 MG/ML Syringe IVPUSH ONE (04:18)
== END 2021-08-04 09:30 | disposition home or self-care (01) ==
LOC: JD.ED 03:18
DX: F10.129 Alcohol abuse with intoxication, unspecified (principal); I10 Essential (primary) hypertension; Z79.899 Other long term (current) drug therapy; Z72.0 Tobacco use; Y90.5 Blood alcohol level of 100-119 mg/100 ml
CPT/HCPCS: 36415; 80053; 80307; 83690; 83735; 85025; 85610; 96374; 96375; 99284; C9113; J2270; J2405

== ENCOUNTER 2021-12-07 01:36 | Emergency (ER) | payer SELFPAY ==
[2021-12-07] MEDS ORDERED: Orphenadrine 100 MG Tab.ER PO STA (03:04)
[2021-12-07] MEDS ORDERED: Ibuprofen 600 MG Tab PO ONE (03:04)
== END 2021-12-07 03:30 | disposition home or self-care (01) ==
LOC: JD.ED 01:36
DX: R07.9 Chest pain, unspecified (principal); E78.1 Pure hyperglyceridemia; I10 Essential (primary) hypertension; Z72.0 Tobacco use
CPT/HCPCS: 36415; 71046; 80053; 83880; 84484; 85025; 85379; 93005; 99285; A9270; 93010